=== PATIENT | female | born 2000 | race African-American/Black ===

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

== ENCOUNTER 2022-03-16 19:13 | Emergency (ER) | payer OTHER ==
[2022-03-16 19:38] VITALS: BP 139/68
[2022-03-16 20:07] LABS: BILIRUBIN,URINE NEGATIVE (NEGATIVE); GLUCOSE, URINE (UA) NEGATIVE (NEGATIVE); KETONES,URINE (UA) NEGATIVE (NEGATIVE); LEUKOCYTE ESTERASE, URINE MODERATE (NEGATIVE); NITRITE,URINE POSITIVE (NEGATIVE); OCCULT BLOOD,URINE NEGATIVE (NEGATIVE); PROTEIN,URINE NEGATIVE (NEGATIVE); UROBILINOGEN,URINE 0.2 (NORMAL) E.U./dL (NORMAL)
--- NOTE | 2022-03-16 20:16 | ED Physician Documentation ---
PD HPI FEMALE - Stated complaint Stated Complaint: FEMALE - Chief complaint Chief Complaint: General - History obtained from History obtained from: Patient - History of Present Illness Timing - onset: How many days ago (2) Timing - duration: Days (2) Timing - details: Gradual onset, Still present Associated symptoms: Vaginal discharge (white clumpy with itching.) Contributing factors: Sexually active (but has been 2-3 months.) Similar symptoms before: Diagnosis (had yeast vaginitis remote past, with similar symptoms.) Review of Systems Constitutional: denies: Fever, Chills Throat: denies: Sore throat GI: denies: Nausea, Vomiting : reports: Discharge. denies: Dysuria, Vaginal bleeding PD PAST MEDICAL HISTORY - Past Medical History Cardiovascular: None Respiratory: None Endocrine/Autoimmune: None ELECTRICAL MAINTENANCE TECHNICIAN: None : None - Past Surgical History Past Surgical History: Yes General: Cholecystectomy - Present Medications Home Medications: Ambulatory Orders Medication Instructions Recorded Confirmed Fluconazole [Diflucan] 150 mg PO ONCE #1 tablet 03/16/22 Ibuprofen [Motrin] 600 mg PO TID PRN #15 tab 03/16/22 - Allergies Allergies/Adverse Reactions: Allergies Allergy/AdvReac Type Severity Reaction Status Date / Time No Known Drug Allergies Allergy Verified 03/16/22 19:38 - Social History Does the pt smoke?: No Smoking Status: Never smoker Does the pt drink ETOH?: No Does the pt have substance abuse?: No PD ED PE NORMAL - Vitals Vital signs reviewed: Yes - General General: Alert and oriented X 3, No acute distress, Well developed/nourished - Abdomen Abdomen: Normal bowel sounds, Soft, Non distended, Other (minimal tenderness suprapubic and right lower without guarding nor percussion tenderness. ) - Female Female : Deferred - Back Back: No CVA TTP - Derm Derm: Normal color, Warm and dry Results - Vitals Vitals: Vital Signs - 24 hr 03/16/22 19:36 Temperature 36.4 C L Heart Rate 78 Respiratory 15 Rate Blood Pressure 139/68 H O2 Saturation 99 Oxygen O2 Source Room air - Labs Labs: Laboratory Tests 03/16/22 03/16/22 03/16/22 20:00 20:00 20:35 Urine Color YELLOW Urine Clarity HAZY Urine pH 6.0 Ur Specific [place] 1.025 Urine Protein NEGATIVE Urine Glucose (UA) NEGATIVE Urine Ketones NEGATIVE Urine Occult Blood NEGATIVE Urine Nitrite POSITIVE H Urine Bilirubin NEGATIVE Urine Urobilinogen 0.2 (NORMAL) Ur Leukocyte Esterase MODERATE H Urine RBC 0-5 Urine WBC 6-10 H Ur Squamous Epith Cells MANY Squamous H Urine Bacteria Many H Ur Microscopic Review INDICATED Urine Culture Comments NOT INDICATED Urine HCG, Qual NEGATIVE C. glabrata (PCR) NEGATIVE C. krusei (PCR) NEGATIVE Sofia species DNA POSITIVE A T. vaginalis (PCR) NEGATIVE Bact Vaginosis (PCR) NEGATIVE PD MEDICAL DECISION MAKING - ED course Complexity details: reviewed results (just sofia on BV screen. ), considered differential (seems like yeast vaginitis. Can do BV swab to ensure only candidal. ), d/w patient Departure - Departure Disposition: 01 Home, Self Care Clinical Impression: Yeast vaginitis Condition: Stable Record reviewed to determine appropriate education?: Yes Instructions: ED Vaginal Infec Fungal Sofia Prescriptions: Fluconazole [Diflucan] 150 mg PO ONCE #1 tablet Ibuprofen [Motrin] 600 mg PO TID PRN #15 tab PRN Reason: Pain Comments: Given your symptoms, we can treat this as a yeast vaginitis. We did do urine culture and a vaginal swab to detect any potential bacterial infections as well. We will call tomorrow if there is any positive findings from that. Otherwise use the Diflucan antifungal tablet every 3 days for 2 more doses and ibuprofen anti-inflammatory 3 times daily for the next 5 or 6 days. Recheck if not improving well over the next several days. I transmitted your prescriptions to [facility] pharmacy. Discharge Date/Time: 03/16/22 20:49
[2022-03-16 20:21] LABS: CLARITY,URINE HAZY (CLEAR)
[2022-03-16 20:22] LABS: HCG UR QUAL NEGATIVE
[2022-03-16 20:31] LABS: BACTERIA,URINE Many /HPF (None Seen); RBC,URINE 0-5 /HPF (0-5); SQUAMOUS EPITHELIAL CELL,UR MANY Squamous (<= Few)
[2022-03-16] MEDS ORDERED: FLUCONAZOLE 100 MG TABLET PO STA (20:31)
[2022-03-16] MEDS ORDERED: IBUPROFEN 600 MG TABLET PO STA (20:31)
[2022-03-16 22:28] LABS: BACTERIAL VAGINOSIS DNA NEGATIVE (NEGATIVE); CANDIDA GLABRATA DNA NEGATIVE (NEGATIVE); CANDIDA GROUP DNA POSITIVE (NEGATIVE); CANDIDA KRUSEI DNA NEGATIVE (NEGATIVE); TRICHOMONAS VAGINALIS DNA NEGATIVE (NEGATIVE)
== END 2022-03-16 20:49 | disposition home or self-care (01) ==
LOC: ED 19:13
DX: B37.3 Candidiasis of vulva and vagina (principal)
CPT/HCPCS: 81001; 81025; 81514; 99282; 99283; A9270; 81003; 87086

== ENCOUNTER 2023-04-02 16:01 | Emergency (ER) | payer OTHER ==
[2023-04-02 16:11] VITALS: BP 148/90
[2023-04-02] MEDS ORDERED: FLUCONAZOLE 100 MG TABLET PO STA (16:12)
--- NOTE | 2023-04-02 16:14 | ED Physician Documentation ---
History of Present Illness - Stated complaint Stated Complaint: FEMALE - Chief complaint Chief Complaint: General - History obtained from History obtained from: Patient - Additonal information Additional information: 23-year-old woman with recurrent yeast infections presents with cheesy white discharge and vaginal itching for the last 2 days similar to prior yeast infections. No pelvic pain, no urinary complaints. Its been about 6 months since last sexual activity so she really does not have a concern about STDs. PD PAST MEDICAL HISTORY - Past Medical History Cardiovascular: None Respiratory: None Endocrine/Autoimmune: None [employer] RUNNER: None : None - Past Surgical History Past Surgical History: Yes General: Cholecystectomy - Present Medications Home Medications: Ambulatory Orders Medication Instructions Recorded Confirmed Fluconazole [Diflucan] 150 mg PO ONCE #1 tablet 03/16/22 Ibuprofen [Motrin] 600 mg PO TID PRN #15 tab 03/16/22 - Allergies Allergies/Adverse Reactions: Allergies Allergy/AdvReac Type Severity Reaction Status Date / Time No Known Drug Allergies Allergy Verified 04/02/23 16:09 - Social History Does the pt smoke?: No Smoking Status: Never smoker Does the pt drink ETOH?: No Does the pt have substance abuse?: No PD ED PE NORMAL - Vitals Vital signs reviewed: Yes - General General: Alert and oriented X 3, No acute distress - Abdomen Abdomen: Soft, Non tender - Derm Derm: Normal color, Warm and dry - Neuro Neuro: Alert and oriented X 3, Normal speech Results - Vitals Vitals: Vital Signs - 24 hr 04/02/23 16:06 Temperature 36.4 C L Heart Rate 79 Respiratory 16 Rate Blood Pressure 148/90 H O2 Saturation 100 Oxygen O2 Source Room air PD Medical Decision Making - ED course ED course: Vaginal exam and swabs were offered and declined by patient. She is pretty sure this is just a yeast infection and would just like to take a Diflucan. Prior charts reviewed, 3 visits last year, all with positive PCR's for Sofia. Departure - Departure Disposition: 01 Home, Self Care Clinical Impression: Vaginal sofia Condition: Good Record reviewed to determine appropriate education?: Yes Instructions: ED Vaginal Infec Fungal Sofia Comments: You should improve over the next few days, return if you worsen. Follow-up with your primary care physician regardless next week for recheck.
== END 2023-04-02 16:19 | disposition home or self-care (01) ==
LOC: ED 16:01
DX: B37.31 Acute candidiasis of vulva and vagina (principal)
CPT/HCPCS: 99282; 99283; A9270